=== PATIENT | male | born 1960 | race Hispanic/Latino ===

== ENCOUNTER 2017-03-17 02:50 | Emergency (ER) | payer OTHER ==
[2017-03-17 03:09] VITALS: TEMP 98.4
[2017-03-17] MEDS ORDERED: Sodium Chloride 0.9% 1,000 ML IV STA (03:14)
--- NOTE | 2017-03-17 03:14 | ED PDOC ---
Arrival/HPI - General Chief Complaint: Abdominal Pain Time Seen by Provider: 03/17/17 02:51 Historian: Patient - History of Present Illness Narrative History of Present Illness (Text): 03/17/17 03:15 Alexander Al is a 57 year old male, whose past medical history includes testicular cancer, exploratory surgery, presents to the Emergency department complaining of vomiting, nausea and intermittent abdominal cramping since eating yesterday. Patient reports normal bowel movements. Patients denies constipation, diarrhea, fever, chills, chest pain, shortness of breath, dizziness, or any other complaints. Time/Duration: 24 hours Symptom Onset: Gradual Quality: Cramping Activities at Onset: Light Context: Home Past Medical History - Provider Review Nursing Documentation Reviewed: Yes - Cardiac Hx Hypertension: Yes - Psychiatric Hx Substance Use: No Family/Social History - Physician Review Nursing Documentation Reviewed: Yes Family/Social History: No Known Family HX Smoking Status: no Hx Alcohol Use: No Hx Substance Use: No Allergies/Home Meds Allergies/Adverse Reactions: Allergies No Known Allergies Allergy (Unverified 03/17/17 03:14) Home Medications: Home Meds Medication Instructions Recorded Confirmed Valsartan [Diovan] 80 mg PO DAILY 03/17/17 03/17/17 amLODIPine [Norvasc] 10 mg PO DAILY 03/17/17 03/17/17 Review of Systems - Physician Review All systems were reviewed & negative as marked: Yes - Review of Systems Constitutional: Normal Eyes: Normal ENT: Normal Respiratory: Normal. absent: SOB, Cough, Sputum, Wheezing Cardiovascular: Normal. absent: Chest Pain, Palpitations Gastrointestinal: Abdominal Pain (left lower quadrant ) Genitourinary Male: absent: Dysuria, Frequency, Hematuria, Urinary Output Changes Musculoskeletal: Normal. absent: Back Pain Skin: Normal Neurological: Normal. absent: Headache, Dizziness Endocrine: Normal. absent: Diaphoresis Psychiatric: Normal Physical Exam Vital Signs Reviewed: Yes Vital Signs Temp Pulse Resp BP Pulse Ox 03/17/17 06:46 58 L 16 126/75 97 03/17/17 05:10 56 L 18 135/65 95 03/17/17 03:06 98.4 F 56 L 18 149/81 99 Temperature: Afebrile Blood Pressure: Normal Pulse: Regular Respiratory Rate: Normal Appearance: Positive for: Well-Appearing, Non-Toxic, Comfortable Pain Distress: None Mental Status: Positive for: Alert and Oriented X 3 - Systems Exam Head: Present: Atraumatic, Normocephalic Pupils: Present: PERRL Extroacular Muscles: Present: EOMI Conjunctiva: Present: Normal Mouth: Present: Moist Mucous Membranes Neck: Present: Normal Range of Motion. No: Meningeal Signs, MIDLINE TENDERNESS , Paraspinal Tenderness Respiratory/Chest: Present: Clear to Auscultation, Good Air Exchange. No: Respiratory Distress, Accessory Muscle Use Cardiovascular: Present: Regular Rate and Rhythm, Normal S1, S2. No: Murmurs Abdomen: Present: Normal Bowel Sounds. No: Tenderness, Distention, Peritoneal Signs Back: Present: Normal Inspection Upper Extremity: Present: Normal Inspection. No: Cyanosis, Edema Lower Extremity: Present: Normal Inspection. No: Edema Neurological: Present: GCS=15, CN II-XII Intact, Speech Normal Skin: Present: Warm, Dry, Normal Color. No: Rashes Psychiatric: Present: Alert, Oriented x 3, Normal Insight, Normal Concentration Medical Decision Making ED Course and Treatment: 03/17/17 03:15 Impression: 57 year old male presents to the Emergency department complaining of vomiting, nausea and intermittent abdominal pain. Plan: -- CT Abdomen and Pelvis -- Labs, lipase -- Pepcid -- IV fluids -- Toradol -- Zofran -- Urinalysis -- Reassess and disposition Progress Notes: 03/17/17 06:13 Reviewed radiology, CT Abdomen and Pelvis shows: - Underdistention versus wall thickening/focal gastritis involving the distal stomach. Recommend clinical correlation. - Otherwise, no evidence of significant acute process on this unenhanced exam. - Stone in the gallbladder neck, with no CT evidence of acute cholecystitis. - See above for remaining findings. - Lab Interpretations Lab Results: 03/17/17 03:30 03/17/17 03:30 Lab Results 03/17/17 06:00: Urine Color Yellow, Urine Appearance Clear, Urine pH 6.5, Ur Specific [place] 1.015, Urine Protein 100 H, Urine Glucose (UA) Negative, Urine Ketones Negative, Urine Blood Small H, Urine Nitrate Negative, Urine Bilirubin Negative, Urine Urobilinogen 0.2, Ur Leukocyte Esterase Negative, Urine RBC 2 - 5, Urine WBC 0 - 2, Ur Epithelial Cells 0 - 2, Urine Bacteria Trace 03/17/17 03:30: WBC 9.7, RBC 4.30, Hgb 13.5 L, Hct 39.4 L, MCV 91.6, MCH 31.4, MCHC 34.3, RDW 13.1, Plt Count 263, MPV 9.9 03/17/17 03:30: Sodium 140, Potassium 3.8, Chloride 101, Carbon Dioxide 28, Anion Gap 15, BUN 26 H, Creatinine 2.0 H, Est GFR ( Amer) 42, Est GFR ( Non-Af Amer) 35, Random Glucose 167 H, Calcium 9.4, Total Bilirubin 0.7, AST 30 , ALT 44, Alkaline Phosphatase 90, Total Protein 7.2, Albumin 4.2, Globulin 3.0 , Albumin/Globulin Ratio 1.4, Lipase 363 H I have reviewed the lab results: Yes - RAD Interpretation Narrative RAD Interpretations (Text): CT Abdomen and Pelvis shows: LIMITATIONS: Mild streak/motion artifact. LOWER THORAX: Linear calcifications versus surgical suture lines in the left lung base. No infiltrate seen in the lung bases. ABDOMEN: LIVER: No acute abnormality of the liver identified. GALLBLADDER AND BILE DUCTS: Large stone in the gallbladder neck. No CT evidence of acute cholecystitis. Pericholecystic fluid or inflammation No evidence of <<START>>. PANCREAS: No CT evidence of acute pancreatitis. SPLEEN: No acute abnormality of the spleen identified. ADRENALS: No acute abnormality of the adrenal glands identified. KIDNEYS AND URETERS: Bilateral perinephric stranding, a nonspecific finding. No renal stones, hydronephrosis, or hydroureter seen. STOMACH AND BOWEL: Wall thickening of the distal stomach. This could represent pseudo-wall thickening due to underdistention/incomplete distension versus focal gastritis. Otherwise, no significant abnormality of the bowel is identified. No evidence of diverticulitis. No evidence of bowel obstruction. APPENDIX: Appendix is seen, and is within normal limits in appearance. PELVIS: BLADDER: No acute abnormality of the bladder identified. REPRODUCTIVE: No acute abnormality of the reproductive organs is seen. ABDOMEN and PELVIS: INTRAPERITONEAL SPACE: No evidence of free intraperitoneal air or fluid. RETROPERITONEAL SPACE: Multiple surgical clips in the retroperitoneum. No significant fluid collection. BONES/JOINTS: Bony structures appear demineralized. SOFT TISSUES: Ventral hernia in the anterior abdominal wall, just to the left of midline, which contains fat. No evidence of bowel herniation. VASCULATURE: No evidence of abdominal aortic aneurysm. No evidence of periaortic hemorrhage. LYMPH NODES: No evidence of diffuse lymphadenopathy. IMPRESSION: - Underdistention versus wall thickening/focal gastritis involving the distal stomach. Recommend clinical correlation. - Otherwise, no evidence of significant acute process on this unenhanced exam. - Stone in the gallbladder neck, with no CT evidence of acute cholecystitis. - See above for remaining findings. Radiology Orders: 03/17/17 04:24 ABD & PELVIS W/O PO OR IV CONT [CT] Stat Clinical Research Associate: Radiologist - Medication Orders Current Medication Orders: Discontinued Medications Famotidine (Pepcid) 20 mg IVP STAT STA Stop: 03/17/17 03:15 Last Admin: 03/17/17 03:32 Dose: 20 mg IVP Administration Document 03/17/17 03:32 YP (Rec: 03/17/17 03:32 YP [id number]) Charges for Administration # of IVP Administrations 1 Sodium Chloride (Sodium Chloride 0.9%) 1,000 mls @ 999 mls/hr IV .Q1H1M STA Stop: 03/17/17 04:14 Last Admin: 03/17/17 03:30 Dose: 999 mls/hr eMAR Start Stop Document 03/17/17 03:30 YP (Rec: 03/17/17 03:32 YP [id number]) Intravenous Solution Start Date 03/17/17 Start Time 03:30 End Date 03/17/17 End time 04:30 Total Infusion Time 60 Ketorolac Tromethamine (Toradol) 30 mg IVP ONCE ONE Stop: 03/17/17 03:15 Last Admin: 03/17/17 03:32 Dose: 30 mg MAR Pain Assessment Document 03/17/17 03:32 YP (Rec: 03/17/17 03:32 YP [id number]) Pain Reassessment Is this a pain reassessment? No Sleep Is patient sleeping during reassessment? No Presence of Pain Presence of Pain Yes IVP Administration Document 03/17/17 03:32 YP (Rec: 03/17/17 03:32 YP [id number]) Charges for Administration # of IVP Administrations 1 Ondansetron HCl (Zofran Inj) 4 mg IVP ONCE ONE Stop: 03/17/17 03:15 Last Admin: 03/17/17 03:32 Dose: 4 mg IVP Administration Document 03/17/17 03:32 YP (Rec: 03/17/17 03:32 YP [id number]) Charges for Administration # of IVP Administrations 1 - Scribe Statement The provider has reviewed the documentation as recorded by the Scribe Fred Zamorano under supervision of Caroline Garay. All medical record entries made by the Scribe were at my direction and personally dictated by me. I have reviewed the chart and agree that the record accurately reflects my personal performance of the history, physical exam, medical decision making, and the department course for this patient. I have also personally directed, reviewed, and agree with the discharge instructions and disposition. Disposition/Present on Arrival - Present on Arrival Any Indicators Present on Arrival: No History of DVT/PE: No History of Uncontrolled Diabetes: No Urinary Catheter: No History of Decub. Ulcer: No History Surgical Site Infection Following: None - Disposition Have Diagnosis and Disposition been Completed?: Yes Diagnosis: Gastritis Disposition: HOME/ ROUTINE Disposition Time: 06:53 Patient Plan: Discharge Condition: GOOD Discharge Instructions (ExitCare): Gastritis (ED) Additional Instructions: Drink small amounts of liquids at a time/advance diet slowly as tolerated/meds as prescribed/follow up with your doctor this week/any recurrent worsening symptoms return to the emergency room Prescriptions: Ondansetron [Zofran Odt] 4 mg PO Q6 PRN #12 odt PRN Reason: Nausea/Vomiting Referrals: Yordy Sandoval MD [Primary Care Provider] - Follow up with primary Forms: [employer] ([place])
[2017-03-17 03:49] LABS: ALB/GLOB RATIO 1.4 (1.1-1.8); BILIRUBIN,TOTAL 0.7 mg/dL (0.2-1.3); CALCIUM 9.4 mg/dL (8.4-10.5); POTASSIUM 3.8 mmol/L (3.6-5.0); TOTAL PROTEIN 7.2 g/dL (5.8-8.3)
[2017-03-17 04:00] LABS: HEMATOCRIT 39.4 % (42.0-52.0); MEAN CELL VOLUME 91.6 fl (80.0-105.0); MEAN CORPUSCULAR HEMOGLOBIN 31.4 pg (25.0-35.0); MEAN CORPUSCULAR HGB CONC 34.3 g/dl (31.0-37.0); MEAN PLATELET VOLUME 9.9 fl (7.0-11.0); RED CELL DISTRIBUTION WIDTH 13.1 % (11.5-14.5); WHITE BLOOD COUNT 9.7 10^3/ul (4.5-11.0)
--- NOTE | 2017-03-17 06:12 | CT ---
EXAM: CT Abdomen and Pelvis Without Intravenous Contrast EXAM DATE/TIME: 03/17/2017 4:24 AM CLINICAL HISTORY: 57 years old, male; Pain; Abdominal pain TECHNIQUE: Axial computed tomography images of the abdomen and pelvis without intravenous contrast. All CT scans at this facility use one or more dose reduction techniques, viz.: automated exposure control; ma/kV adjustment per patient size (including targeted exams where dose is matched to indication; i.e. head); or iterative reconstruction technique. Coronal and sagittal reformatted images were created and reviewed. COMPARISON: No relevant prior studies available. FINDINGS: LIMITATIONS: Mild streak/motion artifact. LOWER THORAX: Linear calcifications versus surgical suture lines in the left lung base. No infiltrate seen in the lung bases. ABDOMEN: LIVER: No acute abnormality of the liver identified. GALLBLADDER AND BILE DUCTS: Large stone in the gallbladder neck. No CT evidence of acute cholecystitis. Pericholecystic fluid or inflammation No evidence of <<START>>. PANCREAS: No CT evidence of acute pancreatitis. SPLEEN: No acute abnormality of the spleen identified. ADRENALS: No acute abnormality of the adrenal glands identified. KIDNEYS AND URETERS: Bilateral perinephric stranding, a nonspecific finding. No renal stones, hydronephrosis, or hydroureter seen. STOMACH AND BOWEL: Wall thickening of the distal stomach. This could represent pseudo-wall thickening due to underdistention/incomplete distension versus focal gastritis. Otherwise, no significant abnormality of the bowel is identified. No evidence of diverticulitis. No evidence of bowel obstruction. APPENDIX: Appendix is seen, and is within normal limits in appearance. PELVIS: BLADDER: No acute abnormality of the bladder identified. REPRODUCTIVE: No acute abnormality of the reproductive organs is seen. ABDOMEN and PELVIS: INTRAPERITONEAL SPACE: No evidence of free intraperitoneal air or fluid. RETROPERITONEAL SPACE: Multiple surgical clips in the retroperitoneum. No significant fluid collection. BONES/JOINTS: Bony structures appear demineralized. SOFT TISSUES: Ventral hernia in the anterior abdominal wall, just to the left of midline, which contains fat. No evidence of bowel herniation. VASCULATURE: No evidence of abdominal aortic aneurysm. No evidence of periaortic hemorrhage. LYMPH NODES: No evidence of diffuse lymphadenopathy. IMPRESSION: - Underdistention versus wall thickening/focal gastritis involving the distal stomach. Recommend clinical correlation. - Otherwise, no evidence of significant acute process on this unenhanced exam. - Stone in the gallbladder neck, with no CT evidence of acute cholecystitis. - See above for remaining findings.
[2017-03-17 06:16] LABS: PH,URINE 6.5 (4.7-8.0); URINE BILIRUBIN NEGATIVE (NEGATIVE); URINE BLOOD SMALL (NEGATIVE); URINE GLUCOSE (UA) NEGATIVE (NEGATIVE); URINE KETONE NEGATIVE (NEGATIVE); URINE LEUKOCYTE ESTERASE NEGATIVE Leu/uL (NEGATIVE); URINE PROTEIN 100 mg/dL (<30 mg/dL); URINE UROBILINOGEN 0.2 E.U./dL (<1 E.U./dL)
[2017-03-17 06:22] LABS: URINE APPEARANCE CLEAR (CLEAR); URINE COLOR YELLOW (YELLOW)
[2017-03-17 06:37] LABS: URINE BACTERIA TRACE (NEG); URINE EPITHELIAL CELLS 0 - 2 /hpf (0-5); URINE WBC 0 - 2 /hpf (0-6)
[2017-03-17 06:47] VITALS: BP 126/75; PULSE 58; RESP 16; O2SAT 97
== END 2017-03-17 07:09 | disposition home or self-care (01) ==
LOC: ED 02:50
DX: K29.70 Gastritis, unspecified, without bleeding (principal); I10 Essential (primary) hypertension
CPT/HCPCS: 74176; 80053; 81001; 83690; 85027; 96361; 96374; 96375; 99284; J1885; J2405; J7040